=== PATIENT | female | born 1970 | race Caucasian/White ===

== ENCOUNTER 2019-05-24 16:34 | Emergency (ER) | payer OTHER ==
--- NOTE | 2019-05-24 17:59 | RADIOLOGY REPORT (SQ) ---
EXAM DESCRIPTION: CHEST 2 VIEWS COMPLETED DATE/TIME: 05/24/2019 5:44 pm REASON FOR STUDY: chest pain COMPARISON: None. EXAM PARAMETERS: NUMBER OF VIEWS: two views TECHNIQUE: Digital Frontal and Lateral radiographic views of the chest acquired. RADIATION DOSE: NA LIMITATIONS: none FINDINGS: LUNGS AND PLEURA: Calcified granuloma right mid lung field. No acute infiltrates or effus ions. MEDIASTINUM AND HILAR STRUCTURES: No masses or contour abnormalities. HEART AND VASCULAR STRUCTURES: The heart pulmonary vasculature are normal. BONES: No acute findings. HARDWARE: None in the chest. OTHER: No other significant finding. IMPRESSION: No acute disease. Old granulomatous disease. TECHNICAL DOCUMENTATION: JOB ID: [id number] [id number] 2010 [employer]- All Rights Reserved Reading location - IP/workstation name: [email or web address]
[2019-05-24] MEDS ORDERED: ASPIRIN 81 MG TABLET, CHEWABLE PO ONE (18:00)
[2019-05-24 18:16] LABS: ABSOLUTE BASOPHILS # (AUTO) 0.1 10^3/uL (0.0-0.2); ABSOLUTE EOSINOPHILS # (AUTO) 0.1 10^3/uL (0.0-0.6); ABSOLUTE LYMPHOCYTES (AUTO) 2.4 10^3/uL (0.5-4.7); ABSOLUTE MONOCYTES (AUTO) 0.9 10^3/uL (0.1-1.4); ABSOLUTE NEUT (AUTO) 7.2 10^3/uL (1.7-8.2); BASOPHILS % (AUTO) 0.7 % (0-2); EOSINOPHILS % (AUTO) 1.1 % (0-6); HEMATOCRIT 43.3 % (36.0-47.0); LYMPHOCYTES % (AUTO) 22.8 % (13-45); MEAN CORPUSCULAR HEMOGLOBIN 32.8 pg (27.0-33.4); MEAN CORPUSCULAR HGB CONC 34.7 g/dL (32.0-36.0); MEAN CORPUSCULAR VOLUME 94 fl (80-97); MONOCYTES % (AUTO) 8.7 % (3-13); PLATELET COUNT 301 10^3/uL (150-450); RED BLOOD COUNT 4.58 10^6/uL (3.72-5.28); SEGMENTED NEUTROPHILS % (AUTO) 66.7 % (42-78); TOTAL CELLS COUNTED % (AUTO) 100 %; WHITE BLOOD COUNT 10.8 10^3/uL (4.0-10.5)
[2019-05-24 18:33] LABS: ALBUMIN 4.3 g/dL (3.5-5.0); ALKALINE PHOSPHATASE 89 U/L (38-126); ANION GAP 11 (5-19); ASPARTATE AMINO TRANSFERASE 136 U/L (14-36); BILIRUBIN,DIRECT 0.3 mg/dL (0.0-0.4); BILIRUBIN,TOTAL 0.9 mg/dL (0.2-1.3); BLOOD UREA NITROGEN 6 mg/dL (7-20); CALCIUM 8.7 mg/dL (8.4-10.2); CARBON DIOXIDE 23 mmol/L (22-30); CHLORIDE 105 mmol/L (98-107); CREATINE KINASE 80 U/L (30-135); GLUCOSE 89 mg/dL (75-110); POTASSIUM 3.9 mmol/L (3.6-5.0); TOTAL PROTEIN 7.6 g/dL (6.3-8.2)
[2019-05-24 18:45] LABS: CREATINE KINASE MB 0.53 ng/mL (<4.55)
[2019-05-24 18:46] LABS: TROPONIN I < 0.012 ng/mL
[2019-05-24] MEDS ORDERED: ONDANSETRON HCL INJ/PF 4 MG/2 ML SDV IV ONE ×2 (18:56→22:13)
[2019-05-24] MEDS ORDERED: MORPHINE SULFATE 10 MG/ML INJ IV ONE (18:56)
[2019-05-24] MEDS: NITROGLYCERIN 0.4 MG/TAB 25 TAB/BOTTLE SL PRN ×2 (19:15→19:25)
[2019-05-24 19:51] LABS: APPEARANCE,URINE CLEAR; BILIRUBIN,URINE NEGATIVE (NEGATIVE); COLOR,URINE YELLOW; GLUCOSE, URINE NEGATIVE (NEGATIVE); KETONES,URINE 20 mg/dL (NEGATIVE); LEUKOCYTE ESTERASE,URINE NEGATIVE (NEGATIVE); NITRITE,URINE NEGATIVE (NEGATIVE); PROTEIN,URINE NEGATIVE (NEGATIVE); URINE SPECIFIC GRAVITY 1.019; UROBILINOGEN,URINE NEGATIVE mg/dL (<2.0)
[2019-05-24] MEDS ORDERED: HYDROMORPHONE HCL INJ/PF 2 MG/ML AMPULE IV ONE (20:04)
--- NOTE | 2019-05-24 20:43 | ER Document Report ---
ED General - General Chief Complaint: Chest Pain Stated Complaint: CHEST PAIN Time Seen by Provider: 05/24/19 18:32 Primary Care Provider: JEANIE LATIF MD [ACTIVE STAFF] - Follow up in 3-5 days (cardiology ) CAROLYNN BROWER MD [ACTIVE STAFF] - Follow up in 3-5 days (gastroenterology) [facility] [Primary Care Provider] - Follow up in 3-5 days Notes: Patient is a 49-year-old female that presents to the emergency department for chief complaint of chest pain and abdominal pain. Patient states that this pain started a few hours ago, has been coming and going, describes it as a heaviness and pressure across her chest, she currently rates as a 9 out of 10. She states he will come and go without any aggravating, relieving factors. She has not noticed that exertion made it worse or better, did not seem to be better or worse with food. The pain is on the left side of her chest, and her epigastric region of her abdomen. She is concerned that this may be her heart, her brother had heart disease in his 40s. She does admit to smoking cigarettes, drinking 3- 4 times a week, denies prior history of other chronic medical conditions. She said last time she had pain like this, it turned out that she had gallbladder disease and had to have a cholecystectomy. Past Medical History: Denies chronic medical conditions Past Surgical History: Cholecystectomy Social History: Admits to smoking cigarettes daily, and drinking alcohol 3-4 times a week, denies illicit drug use. Family History: Reviewed and noncontributory for presenting illness Allergies: Reviewed, see documented allergy list. REVIEW OF SYSTEMS: Other than noted above, the 12 point review of systems was reviewed with the patient and were negative, all pertinent findings are included in the HPI. PHYSICAL EXAMINATION: Vital signs reviewed, nursing noted reviewed. GENERAL: Patient appears rather anxious on exam. HEAD: Atraumatic, normocephalic. EYES: Eyes appear normal, extraocular movements intact, sclera anicteric, conjunctiva are normal. PERRLA ENT: nares patent, oropharynx clear without exudates. Moist mucous membranes. NECK: Normal range of motion, supple without lymphadenopathy LUNGS: Breath sounds clear to auscultation bilaterally and equal. No wheezes rales or rhonchi. HEART: Regular rate and rhythm without murmurs ABDOMEN: Soft, nontender, normoactive bowel sounds. No rebound, guarding, or rigidity. No masses appreciated. EXTREMITIES: Nontender, good range of motion, no pitting or edema. NEUROLOGICAL: No focal neurological deficits. Moves all extremities spontaneously Motor and sensory grossly intact on exam. PSYCH: Appears anxious on exam, some pressured speech, but answering questions appropriately. SKIN: Warm, Dry, normal turgor, no rashes or lesions noted on exposed skin - Related Data Allergies/Adverse Reactions: No Known Allergies Allergy (Unverified 05/24/19 21:54) Past Medical History - Social History Smoking Status: Current Some Day Smoker Frequency of alcohol use: Occasional Drug Abuse: None Family History: Reviewed & Not Pertinent Patient has suicidal ideation: No Patient has homicidal ideation: No Renal/ Medical History: Denies: Hx Peritoneal Dialysis Musculoskeletal Medical History: Reports Hx Arthritis - RA Past Surgical History: Reports: Hx Orthopedic Surgery - Right rotator cuff Physical Exam - Vital signs Vitals: Temp Pulse BP Pulse Ox 98.2 F 93 131/92 H 96 05/24/19 16:49 05/24/19 16:49 05/24/19 16:49 05/24/19 16:49 Course - Re-evaluation Re-evalutation: Patient seen and examined vital signs reviewed. Laboratory data and/or imaging were ordered as appropriate for the patient's presenting symptoms and complaint, with consideration of any critical or life threatening conditions that may be associated with their obtained history and exam as noted above. Patient was treated with aspirin as ordered in triage, and given IV morphine and Zofran, and was still having some pain reevaluation, and was given some IV Dilaudid, due to the patient's pain above and below the diaphragm, and smoking history, CT angiogram of the chest abdomen and pelvis was ordered to rule out aortic dissection. Her blood work was reviewed, demonstrated negative troponin, and was otherwise unremarkable, EKG did not demonstrate acute ischemia. Repeat troponin was ordered. And came back as negative. From a cardiac standpoint, patient's heart score is less than 3, and I feel she can be discharged at this point, and follow-up for stress testing, given family history, but she otherwise does not have significant risk factors, and again her heart score is less than 3. The patient was re-evaluated and was improved, did give her a GI cocktail, as etiology of this was most likely GI, she is been on PPIs in the past, but has not been on them in a while, she also has ulcerative colitis, has not been taking medication for that. Although her CT imaging was otherwise negative and did not show diffuse colitis. I feel she likely has gastritis versus peptic ulcer disease, without anemia or suspicion of bleeding. We will discharge her home with prescription for proton pump inhibitor, with Protonix, as well as Carafate and advised follow-up with gastroenterology, patient was agreeable to this plan of care and will be discharged home. Results were discussed with the patient at this point, after careful cons ideration I feel that that patient can be discharged from the emergency department, the patient was educated treatments and reasons to return to the emergency department based on their presumed diagnosis as noted above, they were advised to followup with a primary care physician in 2-3 days. Patient was agreeable to plan of care. *Note is created using voice recognition software and may contain spelling, syntax or grammatical errors. Laboratory 05/24/19 05/24/19 05/24/19 18:00 18:00 18:00 WBC 10.8 H RBC 4.58 Hgb 15.0 Hct 43.3 MCV 94 MCH 32.8 MCHC 34.7 RDW 14.0 Plt Count 301 Lymph % (Auto) 22.8 Bladen % (Auto) 8.7 Eos % (Auto) 1.1 Baso % (Auto) 0.7 Absolute Neuts (auto) 7.2 Absolute Lymphs (auto) 2.4 Absolute Monos (auto) 0.9 Absolute Eos (auto) 0.1 Absolute Basos (auto) 0.1 Seg Neutrophils % 66.7 Sodium 138.8 Potassium 3.9 Chloride 105 Carbon Dioxide 23 Anion Gap 11 BUN 6 L Creatinine 0.71 Est GFR ( Amer) > 60 Est GFR (MDRD) Non-Af > 60 Glucose 89 Calcium 8.7 Total Bilirubin 0.9 Direct Bilirubin 0.3 Neonat Total Bilirubin Not Reportable Neonat Direct Bilirubin Not Reportable Neonat Indirect Bili Not Reportable AST 136 H ALT 132 Alkaline Phosphatase 89 Creatine Kinase 80 CK-MB (CK-2) 0.53 Troponin I < 0.012 Total Protein 7.6 Albumin 4.3 Lipase 70.5 Urine Color Urine Appearance Urine pH Ur Specific Edwards Urine Protein Urine Glucose (UA) Urine Ketones Urine Blood Urine Nitrite Urine Bilirubin Urine Urobilinogen Ur Leukocyte Esterase Urine WBC (Auto) Urine RBC (Auto) U Hyaline Cast (Auto) Urine Bacteria (Auto) Squamous Epi Cells Auto Urine Mucus (Auto) Urine Ascorbic Acid 05/24/19 05/24/19 19:07 20:07 WBC RBC Hgb Hct MCV MCH MCHC RDW Plt Count Lymph % (Auto) Bladen % (Auto) Eos % (Auto) Baso % (Auto) Absolute Neuts (auto) Absolute Lymphs (auto) Absolute Monos (auto) Absolute Eos (auto) Absolute Basos (auto) Seg Neutrophils % Sodium Potassium Chloride Carbon Dioxide Anion Gap BUN Creatinine Est GFR ( Amer) Est GFR (MDRD) Non-Af Glucose Calcium Total Bilirubin Direct Bilirubin Neonat Total Bilirubin Neonat Direct Bilirubin Neonat Indirect Bili AST ALT Alkaline Phosphatase Creatine Kinase CK-MB (CK-2) Troponin I < 0.012 Total Protein Albumin Lipase Urine Color YELLOW Urine Appearance CLEAR Urine pH 5.0 Ur Specific Edwards 1.019 Urine Protein NEGATIVE Urine Glucose (UA) NEGATIVE Urine Ketones 20 H Urine Blood SMALL H Urine Nitrite NEGATIVE Urine Bilirubin NEGATIVE Urine Urobilinogen NEGATIVE Ur Leukocyte Esterase NEGATIVE Urine WBC (Auto) 6 Urine RBC (Auto) 0 U Hyaline Cast (Auto) 1 Urine Bacteria (Auto) TRACE Squamous Epi Cells Auto 1 Urine Mucus (Auto) OCC Urine Ascorbic Acid NEGATIVE Chest X-Ray 05/24/19 16:53 IMPRESSION: No acute disease. Old granulomatous disease. Abdomen/Pelvis CTA 05/24/19 18:55 IMPRESSION: No evidence of thoracic or abdominal aortic aneurysm or dissection No evidence of pulmonary embolus Fatty infiltration of the liver No evidence of acute process Chest/Abdomen CTA 05/24/19 18:55 IMPRESSION: No evidence of thoracic or abdominal aortic aneurysm or dissection No evidence of pulmonary embolus Fatty infiltration of the liver No evidence of acute process - Vital Signs Vital signs: Temp Pulse Resp BP Pulse Ox 98.2 F 93 14 129/97 H 92 05/24/19 19:30 05/24/19 16:49 05/24/19 19:30 05/24/19 19:30 05/24/19 19:30 - Laboratory Result Diagrams: 05/24/19 18:00 05/24/19 18:00 Laboratory results interpreted by me: 05/24/19 05/24/19 05/24/19 18:00 18:00 19:07 WBC 10.8 H BUN 6 L AST 136 H Urine Ketones 20 H Urine Blood SMALL H - EKG Interpretation by Me Additional EKG results interpreted by me: EKG demonstrates sinus rhythm with a ventricular rate of 87 bpm, normal axis, normal intervals, no evidence of acute ischemia in this EKG, but no prior for comparison. Discharge - Discharge Clinical Impression: Abdominal pain Qualifiers: Abdominal location: epigastric Qualified Code(s): R10.13 - Epigastric pain Chest pain Qualifiers: Chest pain type: unspecified Qualified Code(s): R07.9 - Chest pain, unspecified Condition: Stable Disposition: HOME, SELF-CARE Instructions: Abdominal Pain ([facility]), Chest Pain of Unclear Cause ([facility]) Additional Instructions: Please follow-up with a lining inserter, I also recommend given your family history to follow-up with a paper grader, they have been listed with your discharge paperwork, call to make an appointment. Recommend you take the prescribed omeprazole, once daily for the next month to see if it will help with some of your symptoms and prevent them from returning. If possible try to quit smoking, and cut back on alcohol intake, as these things can worsen ulcer disease, if that is what is causing your pain. Prescriptions: Sucralfate [Carafate 1 gm Tablet] 1 gm PO ACHS #120 tablet Pantoprazole Sodium [Protonix [address] Tablet] 40 mg PO DAILY #30 tablet. [facility]errals: [facility] [Primary [facility]] - Follow up in 3-5 days JEANIE LATIF MD [ACTIVE STAFF] - Follow up in 3-5 days (cardiology ) CAROLYNN BROWER MD [ACTIVE STAFF] - Follow up in 3-5 days (gastroenterology)
--- NOTE | 2019-05-24 21:18 | RADIOLOGY REPORT (SQ) ---
EXAM DESCRIPTION: CT ABDOMEN PELVIS WITHOUT THEN WITH IV CONTRAST, CT CHEST ANGIOGRAPHY WITHOUT THEN WITH IV CONTRAST COMPLETED DATE/TME: 05/24/2019 18:55 CLINICAL HISTORY: 49 years Female chest pain and abdominal pain COMPARISON: None. TECHNIQUE: Contiguous axial images obtained through the chest abdomen and pelvis during the infusion of IV contrast. Reformatted images obtained. 3-D MIP reformatted images obtained. NASCET criteria utilized for the evaluation of any stenotic lesions. This exam was performed according to our department optimization program which includes automated exposure control, adjustment of the mA and/or kv according to patient size and/or use of iterative reconstruction technique. FINDINGS: Chest: Bilateral breast implants. Aorta is normal in caliber without dissection or rupture. There is no evidence of pericardial or pleural effusion. Calcified lymph nodes in the right hilum. No significant mediastinal or hilar adenopathy. No evidence of pulmonary embolus. No acute infiltrate. No pneumothorax. Abdomen pelvis: Fatty infiltration of the liver. Liver is at the upper limits of normal in size. Unremarkable adrenal glands, pancreas and spleen. Absent gallbladder. Mild extrahepatic ductal dilatation. Unremarkable appendix. Kidneys are within normal limits. No free fluid in the pelvis. No bowel obstruction. The abdominal aorta is normal in caliber without dissection or rupture. The origins of the celiac axis, SMA and renal arteries are unremarkable. Common and external iliac arteries also appear patent. IMPRESSION: No evidence of thoracic or abdominal aortic aneurysm or dissection No evidence of pulmonary embolus Fatty infiltration of the liver No evidence of acute process
[2019-05-24] MEDS ORDERED: MAG HYDROX/AL HYDROX/SIMETH SUSP 30 ML UDCUP PO ONE (21:30)
[2019-05-24] MEDS ORDERED: LIDOCAINE 2% VISCOUS SOLN 20 ML UDCUP PO ONE (21:30)
[2019-05-24] MEDS ORDERED: METOCLOPRAMIDE HCL ORAL SOLN 10 MG/10 ML UDCUP PO ONE (21:30)
[2019-05-24 22:28] VITALS: BP 141/93
--- NOTE | 2019-05-25 00:15 | EKG REPORT ---
SEVERITY:- NORMAL ECG - SINUS RHYTHM : Confirmed by: Victoria Mack MD 25-May-2019 00:14:53
== END 2019-05-24 22:33 | disposition home or self-care (01) ==
LOC: ER 16:34
DX: R07.9 Chest pain, unspecified (principal); R10.13 Epigastric pain; F17.200 Nicotine dependence, unspecified, uncomplicated; Z90.49 Acquired absence of other specified parts of digestive tract
CPT/HCPCS: 93005; 96376; 99285; 96374; 96375; 36415; 82553; 82550; 83690; 85025; 80053; 81001; 84484; 71046; 71275; 74174; 93010; J3490; J2270; J1170; J2405

== ENCOUNTER 2019-09-15 05:17 | Emergency (ER) | payer OTHER ==
[2019-09-15] MEDS ORDERED: KETOROLAC TROMETHAMINE INJ/PF 30 MG/1 ML SDV IV ONE (06:24)
--- NOTE | 2019-09-15 06:49 | ER Document Report ---
ED General - General Chief Complaint: Psych Problem Stated Complaint: ABNORMAL BEHAVIOR,ETOH Time Seen by Provider: 09/15/19 06:16 Primary Care Provider: [facility] [Primary [facility]] - Follow up as needed Information source: Patient TRAVEL OUTSIDE OF THE [place] IN LAST 30 DAYS: No - HPI Notes: Patient presents with depression. She states she is been feeling depressed and having some thoughts of hurting herself. She cannot state any specific plan. Says she does have previous problems with depression and suicide attempts. She states that currently she does not have any active thoughts of suicide. Denies any thoughts when hurting really else. She states she does not have any problems with auditory or visual hallucinations. No vomiting or diarrhea. She states she has had a left-sided headache that is been going on for approximate 1 week. Nothing makes it better or worse. It is constant and throbbing. Is moderate in intensity. It radiates across left side of her head. She denies any previous history of problems with headaches. - Related Data Allergies/Adverse Reactions: No Known Allergies Allergy (Verified 09/15/19 05:42) Home Medications: Pt reports she is not currently taking medications Past Medical History - General Information source: Patient - Social History Smoking Status: Current Some Day Smoker Chew tobacco use (# tins/day): No Frequency of alcohol use: 3days/wk Drug Abuse: None Family History: Reviewed & Not Pertinent Patient has suicidal ideation: Yes - Pt denies, but reports previous plan of running out into traffic Patient has homicidal ideation: No Renal/ Medical History: Denies: Hx Peritoneal Dialysis Musculoskeletal Medical History: Reports Hx Arthritis - RA Past Surgical History: Reports: Hx Orthopedic Surgery - Right rotator cuff Review of Systems - Review of Systems Constitutional: denies: Chills, Fever Cardiovascular: denies: Chest pain, Palpitations Respiratory: denies: Cough, Short of breath Gastrointestinal: denies: Diarrhea, Vomiting -: Yes All other systems reviewed and negative Physical Exam - Vital signs Vitals: Temp Pulse Resp BP Pulse Ox 98.6 F 111 H 18 141/99 H 96 09/15/19 05:40 09/15/19 05:40 09/15/19 05:40 09/15/19 05:40 09/15/19 05:40 Interpretation: Normal - General General appearance: Appears well, Alert - HEENT Head: Normocephalic, Atraumatic Eyes: Normal Pupils: PERRL - Respiratory Respiratory status: No respiratory distress Chest status: Nontender Breath sounds: Normal Chest palpation: Normal - Cardiovascular Rhythm: Regular Heart sounds: Normal auscultation Murmur: No - Abdominal Inspection: Normal Distension: No distension Bowel sounds: Normal Tenderness: Nontender Organomegaly: No organomegaly - Back Back: Normal, Nontender - Extremities General upper extremity: Normal inspection, Nontender, Normal color, Normal ROM, Normal temperature General lower extremity: Normal inspection, Nontender, Normal color, Normal ROM, Normal temperature, Normal weight bearing. No: Judi's sign - Neurological Neuro grossly intact: Yes Cognition: Normal Orientation: AAOx4 [place] Coma Scale Eye Opening: Spontaneous [place] Coma Scale Verbal: Oriented [place] Coma Scale Motor: Obeys Commands [place] Coma Scale Total: 15 Speech: Normal Motor strength normal: LUE, RUE, LLE, RLE Sensory: Normal - Psychological Associated symptoms: Depressed, Flat affect - Skin Skin Temperature: Warm Skin Moisture: Dry Skin Color: Normal Course - Re-evaluation Re-evalutation: 09/15/19 12:50 Patient arrives with complaints of depression and is obviously intoxicated. However she ambulates without problem and speaks very clearly. She has been very difficult to deal with. She has no criteria for IVC. Her laboratory work- up is unremarkable other than an elevated alcohol level. Psychiatry has spent extensive time with the patient and patient is currently not agreeable to alcohol inpatient treatment except at the [facility]. At this time the [facility] does not have any beds for the patient. Therefore patient will be discharged to follow-up as an outpatient. I see no evidence that the patient is a threat to herself or others at this time. Her vital signs are stable. She does have her fianc at the bedside who can accompany the patient. - Vital Signs Vital signs: Temp Pulse Resp BP Pulse Ox 98.6 F 111 H 18 141/99 H 96 09/15/19 05:40 09/15/19 05:40 09/15/19 05:40 09/15/19 05:40 09/15/19 05:40 - Laboratory Result Diagrams: 09/15/19 07:23 09/15/19 07:23 Laboratory results interpreted by me: 09/15/19 09/15/19 07:23 10:19 Sodium 147.8 H Chloride 110 H AST 38 H Ur Leukocyte Esterase TRACE H Salicylates < 1.0 L Acetaminophen < 10 L - EKG Interpretation by Ut EKG shows normal: Sinus rhythm Rate: Normal - 97 Rhythm: NSR [place]/QRS: No: Right axis deviation, Left axis deviation Discharge - Discharge Clinical Impression: Depression Qualifiers: Depression Type: major depressive disorder Major depression recurrence: recurrent Active/Remission status: currently active Major depression episode severity: moderate Qualified Code(s): F33.1 - Major depressive disorder, recurrent, moderate Alcohol intoxication Qualifiers: Complication of substance-induced condition: uncomplicated Qualified Code(s): F10.920 - Alcohol use, unspecified with intoxication, uncomplicated Condition: Stable Disposition: HOME, SELF-CARE Instructions: Acute Alcohol Intoxication ([facility]), Chronic Alcoholism ([facility]), Depression ([facility]) Additional Instructions: Please seek out help with your alcohol as soon as possible. Please consider using the resources given you here in the emergency department. Prescriptions: Chlordiazepoxide HCl [Librium 25 mg Capsule] 1 cap PO QID #30 capsule Referrals: [facility] [Primary [facility]] - Follow up tomorrow
[2019-09-15] MEDS ORDERED: LORAZEPAM 1 MG TABLET PO ONE (07:11)
[2019-09-15] MEDS ORDERED: KETOROLAC TROMETHAMINE INJ/PF 30 MG/1 ML SDV IM ONE (07:23)
--- NOTE | 2019-09-15 08:20 | RADIOLOGY REPORT (SQ) ---
EXAM DESCRIPTION: CT HEAD WITHOUT COMPLETED DATE/TIME: 09/15/2019 7:18 am REASON FOR STUDY: headache COMPARISON: None. TECHNIQUE: Axial images acquired through the brain without intravenous contrast. Images reviewed wi th bone, brain and subdural windows. Images stored on PACS. All CT scanners at this facility use dose modulation, iterative reconstruction, and/or weight based d osing when appropriate to reduce radiation dose to as low as reasonably achievable (ALARA). [facility]: Dose Right [facility]: CareDose [facility]: Dose Right [facility]: Teradose 4D [facility]: [employer] RADIATION DOSE: CT Rad equipment meets quality standard of care and radiation dose reduction techniq ues were employed. CTDIvol: 55.2 mGy. DLP: 1112 mGy-cm. mGy. LIMITATIONS: None. FINDINGS: VENTRICLES: Normal size and contour. CEREBRUM: No masses. No hemorrhage. No midline shift. No evidence for acute infarction. Normal gra y/white matter differentiation. No areas of low density in the white matter. CEREBELLUM: No masses. No hemorrhage. No alteration of density. No evidence for acute infarction. EXTRAAXIAL SPACES: No fluid collections. No masses. ORBITS AND GLOBE: No intra- or extraconal masses. Normal contour of globe without masses. CALVARIUM: No fracture. PARANASAL SINUSES: No fluid or mucosal thickening. SOFT TISSUES: No mass or hematoma. OTHER: No other significant finding. IMPRESSION: No acute intracranial pathology. No noncontrast CT findings to explain headache. EVIDENCE OF ACUTE STROKE: NO. COMMENT: Quality ID # [id number]: Final reports with documentation of one or more dose reduction techniques (e.g., Automated exposure control, adjustment of the mA and/or kV according to patient size, use of iterative reconstruction technique) TECHNICAL DOCUMENTATION: JOB ID: [id number] [employer]- All Rights Reserved Reading location - IP/workstation name: [email or web address]
[2019-09-15 08:46] LABS: ABSOLUTE BASOPHILS # (AUTO) 0.1 10^3/uL (0.0-0.2); ABSOLUTE EOSINOPHILS # (AUTO) 0.2 10^3/uL (0.0-0.6); ABSOLUTE LYMPHOCYTES (AUTO) 2.8 10^3/uL (0.5-4.7); ABSOLUTE MONOCYTES (AUTO) 0.5 10^3/uL (0.1-1.4); ABSOLUTE NEUT (AUTO) 3.2 10^3/uL (1.7-8.2); BASOPHILS % (AUTO) 1.2 % (0-2); EOSINOPHILS % (AUTO) 2.5 % (0-6); HEMATOCRIT 43.8 % (36.0-47.0); LYMPHOCYTES % (AUTO) 41.3 % (13-45); MEAN CORPUSCULAR HEMOGLOBIN 32.4 pg (27.0-33.4); MEAN CORPUSCULAR HGB CONC 34.2 g/dL (32.0-36.0); MEAN CORPUSCULAR VOLUME 95 fl (80-97); MONOCYTES % (AUTO) 7.4 % (3-13); PLATELET COUNT 333 10^3/uL (150-450); RED BLOOD COUNT 4.62 10^6/uL (3.72-5.28); RED CELL DISTRIBUTION WIDTH 13.6 % (11.5-14.0); SEGMENTED NEUTROPHILS % (AUTO) 47.6 % (42-78); TOTAL CELLS COUNTED % (AUTO) 100 %; WHITE BLOOD COUNT 6.7 10^3/uL (4.0-10.5)
[2019-09-15 09:09] LABS: ACETAMINOPHEN < 10 ug/mL (10-30); ALBUMIN 4.5 g/dL (3.5-5.0); ALCOHOL 234 mg/dL (NONE DETECTED); ALKALINE PHOSPHATASE 63 U/L (38-126); ANION GAP 15 (5-19); ASPARTATE AMINO TRANSFERASE 38 U/L (14-36); BILIRUBIN,DIRECT 0.2 mg/dL (0.0-0.4); BILIRUBIN,TOTAL 0.4 mg/dL (0.2-1.3); BLOOD UREA NITROGEN 9 mg/dL (7-20); CALCIUM 9.1 mg/dL (8.4-10.2); CARBON DIOXIDE 23 mmol/L (22-30); CHLORIDE 110 mmol/L (98-107); GLUCOSE 95 mg/dL (75-110); POTASSIUM 4.7 mmol/L (3.6-5.0); SALICYLATE < 1.0 mg/dL (2.0-20.0); TOTAL PROTEIN 8.2 g/dL (6.3-8.2)
[2019-09-15 10:43] LABS: APPEARANCE,URINE SLIGHTLY-CLOUDY; BILIRUBIN,URINE NEGATIVE (NEGATIVE); COLOR,URINE STRAW; GLUCOSE, URINE NEGATIVE (NEGATIVE); KETONES,URINE NEGATIVE (NEGATIVE); LEUKOCYTE ESTERASE,URINE TRACE (NEGATIVE); NITRITE,URINE NEGATIVE (NEGATIVE); PROTEIN,URINE NEGATIVE (NEGATIVE); URINE SPECIFIC GRAVITY 1.004; UROBILINOGEN,URINE NEGATIVE mg/dL (<2.0)
[2019-09-15 11:08] LABS: URINE AMPHETAMINES SCREEN NEGATIVE; URINE BARBITURATES SCREEN NEGATIVE; URINE BENZODIAZEPINES SCREEN NEGATIVE; URINE COCAINE SCREEN NEGATIVE; URINE MARIJUANA (THC) SCREEN NEGATIVE; URINE METHADONE SCREEN NEGATIVE; URINE PHENCYCLIDINE SCREEN NEGATIVE
--- NOTE | 2019-09-15 13:14 | PSYCHOLOGICAL NOTE ---
Psych Note - Psych Note Date seen by psych provider: 09/15/19 Time seen by psych provider: 11:00 Psych Note: Reason for consult: Behavioral Problems Patient is 49 year old female with a history of PTSD and MST. Patient presents to ED via EMS. Patient was yelling at boyfriend about going outside to smoke and leaving patient alone when clinician entered the room. Patient is hyperfocused on her anxiety and the lack of medication she is receiving to alleviate her anxiety. Patient also complains of pain from her hernia. Patient repeatedly complained of the lack of attention from medical staff. Clinician attempted to refocus patient's attention to her reported mental health concerns. Patient stated [facility]. Patient again became irate complaining about her anxiety and lack of attention from medical staff. Patient was guarded with all disclosures when she was not complaining about her perceived lack of attention from medical staff. Patient denies suicidal and homicidal ideations. Patient denies auditory and visual hallucinations. Clinician provided psychoeducation to patient regarding a high blood alcohol content and likelihood of accidental overdose/ when mixed with benzos. Lynn lewis contacted Bab[facility] at the [facility] for collateral information. Babita confirmed PTSD and MST. Patient [facility] Clinician contacted [facility] for possible placement. There are no available beds at the [facility]. Patient declined to go to the [facility] in [place] to begin the process to have the [facility] refer her [facility] for treatment. Patient stated she will only receive services through the [facility]. Updated: Patient asked to speak with clinician at discharge. Patient asked clinician about filling prescription through the [facility]. Clinician provided requested information. Patient expressed confusion about services. Clinician provided patient with outpatient mental health resource list with opinions highlighted that had experience with issues related to the population ([facility] and [facility]). Clinician provided patient with substance abuse treatment resource list. Clinician provided patient with the contact information for the [facility] coordinator and a contact at the [facility] who specializes in PTSD and MST. Clinician encouraged patient to go to the [facility] ED. Patient expressed gratitude for the information. Patient spoke of being overwhelmed with navigating the [facility] system. Clinician encouraged patient to always follow up with the [facility]. Patient is alert and oriented to person, place, time and circumstance. Mood is irate with congruent affect. Patient denies suicidal and homicidal ideations. Delusions are absent and behavior is congruent with an intact reality based presentation (i.e.: organized and linear through processes). There is no observed behavior that suggests patient is responding to internal stimuli. Patient denies current auditory and visual hallucinations. Eye contact is appropriate. Conversational speech is somewhat slurred. At times patient would pause before answering questions. Intellectual ability appears to be within average range. Attention and concentration are good. Insight, judgment and im pulse control are currently poor. DSM Diagnosis: PTSD MST Alcohol Use Disorder Medication recommendations per [facility] contracted psychiatrist Dr. Isa VAZQUEZ is as follows: NONE Impression/Plan: Patient is cleared from acute psychiatric services. Patient does not meet IVC criteria per [facility] GS 122C. Patient denies suicidal and homicidal ideations. There is no observed behavior that suggests patient is responding to internal stimuli. Patient denies current auditory and visual hallucinations. Patient lacks insight into her current circumstance. Clinician observed a pattern of aggressive behavior and speech when patient interacted with hospital staff, however patient could also be calm and cooperative. Initially patient declined any treatment that was not through the [facility]. Patient agreed to consider outpatient services at discharge. Patient was provided outpatient mental health resource list with friendly options highlighted. Patient was provided with substance abuse treatment list. Plan is for patient to present to the [facility] ED. Dr. Larsen was consulted on the care and management of this patient; attending physician is in agreement with recommendations and florentino powers
[2019-09-15 13:24] VITALS: BP 122/80
--- NOTE | 2019-09-15 22:35 | EKG REPORT ---
SEVERITY:- NORMAL ECG - SINUS RHYTHM : Confirmed by: Kali Gifford 15-Sep-2019 22:34:42
== END 2019-09-15 13:35 | disposition home or self-care (01) ==
LOC: ER 05:17
DX: F33.1 Major depressive disorder, recurrent, moderate (principal); F10.920 Alcohol use, unspecified with intoxication, uncomplicated; R51 Headache; F17.200 Nicotine dependence, unspecified, uncomplicated; F43.10 Post-traumatic stress disorder, unspecified
CPT/HCPCS: 93005; 99285; 96372; 36415; 80307 ×4; 85025; 80053; 81001; 70450; 93010; J1885

== ENCOUNTER 2019-09-20 02:32 | Emergency (ER) | payer OTHER ==
[2019-09-20 03:26] LABS: ABSOLUTE BASOPHILS # (AUTO) 0.1 10^3/uL (0.0-0.2); ABSOLUTE EOSINOPHILS # (AUTO) 0.3 10^3/uL (0.0-0.6); ABSOLUTE LYMPHOCYTES (AUTO) 3.1 10^3/uL (0.5-4.7); ABSOLUTE MONOCYTES (AUTO) 0.5 10^3/uL (0.1-1.4); ABSOLUTE NEUT (AUTO) 3.1 10^3/uL (1.7-8.2); EOSINOPHILS % (AUTO) 4.6 % (0-6); HEMATOCRIT 44.9 % (36.0-47.0); HEMOGLOBIN 15.2 g/dL (12.0-15.5); LYMPHOCYTES % (AUTO) 43.6 % (13-45); MEAN CORPUSCULAR HEMOGLOBIN 32.3 pg (27.0-33.4); MEAN CORPUSCULAR HGB CONC 33.9 g/dL (32.0-36.0); MEAN CORPUSCULAR VOLUME 95 fl (80-97); MONOCYTES % (AUTO) 6.5 % (3-13); PLATELET COUNT 369 10^3/uL (150-450); RED CELL DISTRIBUTION WIDTH 13.2 % (11.5-14.0); SEGMENTED NEUTROPHILS % (AUTO) 44.3 % (42-78); TOTAL CELLS COUNTED % (AUTO) 100 %; WHITE BLOOD COUNT 7.1 10^3/uL (4.0-10.5)
[2019-09-20 03:34] LABS: ALBUMIN 4.6 g/dL (3.5-5.0); ALCOHOL 263 mg/dL (NONE DETECTED); ALKALINE PHOSPHATASE 68 U/L (38-126); ANION GAP 15 (5-19); ASPARTATE AMINO TRANSFERASE 55 U/L (14-36); BILIRUBIN,DIRECT 0.2 mg/dL (0.0-0.4); BILIRUBIN,TOTAL 0.3 mg/dL (0.2-1.3); BLOOD UREA NITROGEN 11 mg/dL (7-20); CALCIUM 9.4 mg/dL (8.4-10.2); CARBON DIOXIDE 20 mmol/L (22-30); CHLORIDE 113 mmol/L (98-107); GLUCOSE 99 mg/dL (75-110); POTASSIUM 4.6 mmol/L (3.6-5.0); TOTAL PROTEIN 8.2 g/dL (6.3-8.2)
[2019-09-20] MEDS ORDERED: NORMAL SALINE 1000 ML 1,000 ML IV ONE (03:36)
--- NOTE | 2019-09-20 04:07 | ER Document Report ---
Entered by FELIPE PEACOCK SCRIBE 09/20/19 0332 Acting as scribe for:JOSE DAVIS IV, MD ED Substance Abuse / Acc. OD - General Mode of Arrival: Ambulatory Information source: Patient TRAVEL OUTSIDE OF THE U.S. IN LAST 30 DAYS: No <JOSE DAVIS IV - Last Filed: 09/20/19 05:36> <SHANE JUSTICE - Last Filed: 09/20/19 13:08> - General Chief Complaint: ETOH Abuse Stated Complaint: ETOH Time Seen by Provider: 09/20/19 02:44 Primary Care Provider: [facility] [Primary Care Provider] - Follow up as needed Notes: This 49 year old female patient presents to the emergency department today with complaints of acute alcohol intoxication. Patient reported to nursing staff that "this is the [facility] to the [facility]. This is what I have got to do to stay alive. I am gonna tell them at the [facility] what is going on but I am not going to tell you guys here what I have going on". Denies HI/SI. (JOSE DAVIS IV) - Related Data Allergies/Adverse Reactions: No Known Allergies Allergy (Verified 09/20/19 02:43) Past Medical History - General Information source: Patient - Social History Smoking Status: Current Every Day Smoker Cigarette use (# per day): Yes Frequency of alcohol use: Heavy Drug Abuse: None Family History: Reviewed & Not Pertinent Patient has suicidal ideation: - unk Patient has homicidal ideation: - unk Renal/ Medical History: Denies: Hx Peritoneal Dialysis Musculoskeletal Medical History: Reports Hx Arthritis - RA Past Surgical History: Reports: Hx Abdominal Surgery - hernia repair, Hx Orthopedic Surgery - Right rotator cuff <JOSE DAVIS IV - Last Filed: 09/20/19 05:36> Review of Systems - Review of Systems -: Yes ROS unobtainable due to patient's medical condition - intoxicated <JOSE DAVIS IV - Last Filed: 09/20/19 05:36> Physical Exam <JOSE DAVIS IV - Last Filed: 09/20/19 05:36> - Vital signs Vitals: Temp Pulse Resp BP Pulse Ox 97.3 F 97 13 113/80 97 09/20/19 02:35 09/20/19 02:35 09/20/19 02:35 09/20/19 02:35 09/20/19 02:35 - Notes Notes: Physical Exam: General: Alert, sleeping. Intoxicated. HEENT: Normocephalic. Atraumatic. PERRL. Extraocular movements intact. Oropharynx clear. Neck: Supple. Non-tender. Respiratory: No respiratory distress. Clear and equal breath sounds bilaterally. Cardiovascular: Regular rate and rhythm. Abdominal: Normal Inspection. Non-tender. No distension. Normal Bowel Sounds. Back: No gross abnormalities. Extremities: Moves all four extremities. Upper extremities: Normal inspection. Normal ROM. Lower extremities: Normal inspection. No edema. Normal ROM. Skin: Warm. Dry. Normal color. (JOSE DAVIS IV) Course - Laboratory Result Diagrams: 09/20/19 02:58 09/20/19 02:58 <JOSE DAVIS IV - Last Filed: 09/20/19 05:36> - Laboratory Result Diagrams: 09/20/19 02:58 09/20/19 02:58 <SHANE JUSTICE - Last Filed: 09/20/19 13:08> - Vital Signs Vital signs: Temp Pulse Resp BP Pulse Ox 98.2 F 97 19 121/78 100 09/20/19 11:00 09/20/19 02:35 09/20/19 11:16 09/20/19 11:16 09/20/19 11:16 - Laboratory Laboratory results interpreted by me: 09/20/19 02:58 Sodium 148.1 H Chloride 113 H Carbon Dioxide 20 L AST 55 H - EKG Interpretation by Me Additional EKG results interpreted by me: 09/20/19 03:32 EKG performed on 09/20/2019 at 0307 hrs. was interpreted by this MD. Findings: Normal sinus rhythm, rate 86, normal axis, P waves preceding QRS complexes, QRS complexes appear narrow, there are no apparent ST segment elevation or depress ion patterns to suggest acute myocardial injury or ischemia. Impression: Normal sinus rhythm with nonspecific ST segments. (JOSE DAVIS IV) Discharge <JOSE DAVIS IV - Last Filed: 09/20/19 05:36> <SHANE JUSTICE - Last Filed: 09/20/19 13:08> - Discharge Clinical Impression: Alcohol use disorder Condition: Stable Disposition: HOME, SELF-CARE Referrals: [facility] [Primary Care Provider] - Follow up as needed I personally performed the services described in the documentation, reviewed and edited the documentation which was dictated to the scribe in my presence, and it accurately records my words and actions.
[2019-09-20 04:14] LABS: URINE AMPHETAMINES SCREEN NEGATIVE; URINE BARBITURATES SCREEN NEGATIVE; URINE COCAINE SCREEN NEGATIVE; URINE MARIJUANA (THC) SCREEN NEGATIVE; URINE METHADONE SCREEN NEGATIVE; URINE PHENCYCLIDINE SCREEN NEGATIVE
[2019-09-20 04:20] LABS: URINE BENZODIAZEPINES SCREEN UNCONFIRMED POSITIVE
--- NOTE | 2019-09-20 10:17 | ER Document Report ---
Doctor's Note Notes: 09/20/19 09:56 This is a 49-year-old lady seen overnight by Dr. Rose with alcohol intoxication without documented blood alcohol around 250 at 3 AM. She is too intoxicated to be adequately evaluated at that time. She is now clinically sober and says that she would like to go to alcohol detox with the [facility]. She apparently has some PTSD issues and is chronically depressed and also has some chronic pain issues. She is denying hallucinations or any suicidal/homicidal ideation. I will ask for psychiatry evaluation and put in for consult. 09/20/19 12:52 Patient had been given 0.5 mg of Ativan orally earlier for complaint of anxiety and says that this is "not satisfactory". Patient is complaining of burning and cramping epigastric discomfort which I think is probably due to her abuse of alcohol. She is hemodynamically stable at this time and afebrile. She has mild epigastric tenderness. Certainly has no indication of a surgical abdomen and she indicates that she has long-term abdominal pain similar nature. She says she is received Dilaudid for this elsewhere. I explained to her that I do not feel Dilaudid is at all an appropriate agent. She was offered a GI cocktail and refused this. She then asked for tramadol which I again explained to her was not an appropriate medication of the circumstances. I will give her an IM injection of Benadryl. She is being interviewed by mental health service at this time. 09/20/19 13:04 Mental health service concurs that patient is not suicidal or homicidal. She wants to go to the [facility] in [place] for admission there for detox. She and her boyfriend have already spoken with someone at their crisis line and they indicate that she can come to the emergency department at that facility for evaluation. She is being discharged and will be transported by her boyfriend at this time.
[2019-09-20] MEDS ORDERED: LORAZEPAM 0.5 MG TABLET PO ONE (11:25)
[2019-09-20] MEDS ORDERED: METOCLOPRAMIDE HCL ORAL SOLN 10 MG/10 ML UDCUP PO ONE (12:30)
[2019-09-20] MEDS ORDERED: LIDOCAINE 2% VISCOUS SOLN 20 ML UDCUP PO ONE (12:30)
[2019-09-20] MEDS ORDERED: MAG HYDROX/AL HYDROX/SIMETH SUSP 30 ML UDCUP PO ONE (12:30)
[2019-09-20] MEDS ORDERED: HYDROXYZINE PAMOATE 25 MG CAPSULE PO ONE (12:30)
[2019-09-20] MEDS ORDERED: DICYCLOMINE HCL INJ 20 MG/2 ML AMPULE IM ONE (12:54)
--- NOTE | 2019-09-20 13:11 | PSYCHOLOGICAL NOTE ---
Psych Note - Psych Note Date seen by psych provider: 09/20/19 Time seen by psych provider: 12:30 Psych Note: Reason for consult: ETOH Patient is 49 year old female with a history of PTSD and MST. Patient presents to ED via EMS. Patient was seen by behavioral health on 09/15/2019 with same concerns. Patient "self medicates" with ETOH. Patient's JESUS is 263. Patient was requesting medication for pain associated with Lupus and an abdominal hernia. Patient s tates she went home on 09/15/2019 and changed her mind about going to [place]. Clinician provided psychoeducation to patient regarding a high blood alcohol content and likelihood of accidental overdose/ when mixed with benzos and pain medication. Clinician contacted Babita at the [facility] for collateral information. Babita confirmed PTSD and MST. Patient has recieved inpatient services through the [facility]. Clinician contacted [facility], [place], and [facility] and was informed there are no available beds. Patient stated she will only receive services through the [facility]. Patient is alert and oriented to person, place, time and circumstance. Mood is normal with congruent affect. Patient denies suicidal and homicidal ideations. Delusions are absent and behavior is congruent with an intact reality based presentation (i.e.: organized and linear through processes). There is no observed behavior that suggests patient is responding to internal stimuli. Patient denies current auditory and visual hallucinations. Eye contact is appropriate. Conversational speech is somewhat slurred. At times patient would pause before answering questions. Intellectual ability appears to be within ave rage range. Attention and concentration are good. Insight, judgment and impulse control are currently poor. DSM Diagnosis: PTSD MST Alcohol Use Disorder; Severe Medication recommendations per [facility] contracted psychiatrist Dr. Isa VAZQUEZ is as follows: NONE Impression/Plan: Patient is cleared from acute psychiatric services. Patient does not meet IVC criteria per [place] GS 122C. Patient denies suicidal and homicidal ideations. There is no observed behavior that suggests patient is responding to internal stimuli. Patient denies current auditory and visual hallucinations. Patient verbalized insight that she needs help. Plan is for patient to leave ED and immediately present to the [facility] ED for further treatment. [facility] ED was advised patient is en route. Dr. Larsen was consulted on the care and management of this patient; attending physician is in agreement with recommendations and disposition.
[2019-09-20 14:09] VITALS: BP 119/88
--- NOTE | 2019-09-20 17:15 | EKG REPORT ---
SEVERITY:- BORDERLINE ECG - SINUS RHYTHM BORDERLINE PROLONGED QT INTERVAL : Confirmed by: Kali Gifford 20-Sep-2019 17:14:08
== END 2019-09-20 14:08 | disposition home or self-care (01) ==
LOC: ER 02:32
DX: F10.129 Alcohol abuse with intoxication, unspecified (principal); Y90.8 Blood alcohol level of 240 mg/100 ml or more; F17.210 Nicotine dependence, cigarettes, uncomplicated; F41.9 Anxiety disorder, unspecified; R10.13 Epigastric pain
CPT/HCPCS: 93005; 99285; 96372; 96360; 36415; 80307 ×2; 85025; 80053; 93010; J0500; J7030

== ENCOUNTER 2019-09-25 04:44 | Emergency (ER) | payer OTHER ==
[2019-09-25 06:34] LABS: ABSOLUTE EOSINOPHILS # (AUTO) 0.3 10^3/uL (0.0-0.6); ABSOLUTE LYMPHOCYTES (AUTO) 2.8 10^3/uL (0.5-4.7); ABSOLUTE MONOCYTES (AUTO) 0.6 10^3/uL (0.1-1.4); ABSOLUTE NEUT (AUTO) 4.7 10^3/uL (1.7-8.2); BASOPHILS % (AUTO) 0.2 % (0-2); EOSINOPHILS % (AUTO) 3.4 % (0-6); HEMATOCRIT 44.2 % (36.0-47.0); HEMOGLOBIN 15.2 g/dL (12.0-15.5); LYMPHOCYTES % (AUTO) 33.1 % (13-45); MEAN CORPUSCULAR HEMOGLOBIN 32.6 pg (27.0-33.4); MEAN CORPUSCULAR HGB CONC 34.3 g/dL (32.0-36.0); MEAN CORPUSCULAR VOLUME 95 fl (80-97); MONOCYTES % (AUTO) 7.3 % (3-13); PLATELET COUNT 335 10^3/uL (150-450); RED BLOOD COUNT 4.65 10^6/uL (3.72-5.28); RED CELL DISTRIBUTION WIDTH 13.5 % (11.5-14.0); TOTAL CELLS COUNTED % (AUTO) 100 %; WHITE BLOOD COUNT 8.4 10^3/uL (4.0-10.5)
[2019-09-25 06:46] LABS: APPEARANCE,URINE SLIGHTLY-CLOUDY; BILIRUBIN,URINE NEGATIVE (NEGATIVE); COLOR,URINE YELLOW; GLUCOSE, URINE NEGATIVE (NEGATIVE); KETONES,URINE NEGATIVE (NEGATIVE); LEUKOCYTE ESTERASE,URINE NEGATIVE (NEGATIVE); NITRITE,URINE NEGATIVE (NEGATIVE); PROTEIN,URINE NEGATIVE (NEGATIVE); URINE SPECIFIC GRAVITY 1.012; UROBILINOGEN,URINE NEGATIVE mg/dL (<2.0)
[2019-09-25 06:59] LABS: ALBUMIN 4.7 g/dL (3.5-5.0); ALKALINE PHOSPHATASE 72 U/L (38-126); ANION GAP 18 (5-19); ASPARTATE AMINO TRANSFERASE 61 U/L (14-36); BILIRUBIN,DIRECT 0.5 mg/dL (0.0-0.4); BILIRUBIN,TOTAL 0.5 mg/dL (0.2-1.3); BLOOD UREA NITROGEN 11 mg/dL (7-20); CALCIUM 9.9 mg/dL (8.4-10.2); CARBON DIOXIDE 23 mmol/L (22-30); CHLORIDE 103 mmol/L (98-107); GLUCOSE 86 mg/dL (75-110); POTASSIUM 4.3 mmol/L (3.6-5.0); TOTAL PROTEIN 8.6 g/dL (6.3-8.2)
[2019-09-25] MEDS ORDERED: NORMAL SALINE 1000 ML 1,000 ML IV ONE (11:17)
[2019-09-25] MEDS ORDERED: DICYCLOMINE HCL INJ 20 MG/2 ML AMPULE IM ONE (11:23)
[2019-09-25] MEDS ORDERED: ONDANSETRON HCL INJ/PF 4 MG/2 ML SDV IV ONE (11:23)
--- NOTE | 2019-09-25 11:54 | ER Document Report ---
ED General - General Chief Complaint: Abdominal Pain Stated Complaint: ABDOMINAL PAIN Time Seen by Provider: 09/25/19 11:11 Primary Care Provider: JOSE SENIOR MD [ACTIVE STAFF] - Follow up in 1 week [facility] [Primary Care Provider] - Follow up in 3-5 days Notes: 49-year-old female presents with abdominal pain secondary to an abdominal hernia that is been ongoing for 4 years. Patient states she has daily lucia sea/vomiting/diarrhea. Patient denies any fevers/chills. Patient does admit to alcohol use. Patient denies any chest pain or shortness of breath. TRAVEL OUTSIDE OF THE U.S. IN LAST 30 DAYS: No - Related Data Allergies/Adverse Reactions: No Known Allergies Allergy (Verified 09/20/19 02:43) Home Medications: etodolac. gabapentin Past Medical History - Social History Smoking Status: Current Some Day Smoker Frequency of alcohol use: 3 glasses of wine Family History: Reviewed & Not Pertinent Patient has suicidal ideation: No Patient has homicidal ideation: No Renal/ Medical History: Denies: Hx Peritoneal Dialysis Musculoskeletal Medical History: Reports Hx Arthritis - RA Past Surgical History: Reports: Hx Abdominal Surgery - hernia repair, Hx Orthopedic Surgery - Right rotator cuff - Immunizations Immunizations up to date: Yes Hx Diphtheria, Pertussis, Tetanus Vaccination: Yes Review of Systems - Review of Systems Notes: Constitutional: Negative for fever. HENT: Negative for sore throat. Eyes: Negative for visual changes. Cardiovascular: Negative for chest pain. Respiratory: Negative for shortness of breath. Gastrointestinal: Positive for abdominal pain, vomiting or diarrhea. Genitourinary: Negative for dysuria. Musculoskeletal: Negative for back pain. Skin: Negative for rash. Neurological: Negative for headaches, weakness or numbness. 10 point ROS negative except as marked above and in HPI. Physical Exam - Vital signs Vitals: Temp Pulse Resp BP Pulse Ox 98.3 F 117 H 20 137/92 H 97 09/25/19 04:52 09/25/19 04:52 09/25/19 04:52 09/25/19 04:52 09/25/19 04:52 - Notes Notes: GENERAL: Well-appearing, well-nourished and in no acute distress. HEAD: Atraumatic, normocephalic. EYES: Extraocular movements intact, sclera anicteric, conjunctiva are normal. NECK: Normal range of motion, supple without lymphadenopathy or JVD. LUNGS: Breath sounds clear to auscultation bilaterally and equal. No wheezes rales or rhonchi. HEART: Regular rate and rhythm without murmurs, rubs or gallops. ABDOMEN: Soft, diffusely tender. Abdominal hernia noted which is soft and reducible. No guarding, no rebound. No masses appreciated. EXTREMITIES: Normal range of motion, no pitting or edema. No clubbing or cyanosis. NEUROLOGICAL: Cranial nerves II through XII grossly intact. Normal speech, normal gait. PSYCH: Normal mood, normal affect. SKIN: Warm, Dry, normal turgor, no rashes or lesions noted. Course - Re-evaluation Re-evalutation: 09/25/19 49-year-old female presents for 4-year history of abdominal pain second vinay to an abdominal hernia with daily nausea/vomiting/diarrhea. Nontoxic, well- appearing. Afebrile. Abdomen is soft and diffusely tender with no rebound or guarding. Hernia is reducible and soft. PE is otherwise unremarkable. Lab work is unremarkable. No leukocytosis. Mildly elevated AST. CT abdomen/pelvis with IV contrast ordered. Bentyl IM and Zofran IV with IV fluid bolus also ordered. 09/25/19 13:07 CT scan shows epiploic appendagitis. Will treat pt with Bentyl and refer pt to general surgery. Discussed plan of care with pt who agrees. Also discussed pt with Dr. Bailey, attending, who agrees with plan of care. - Vital Signs Vital signs: Temp Pulse Resp BP Pulse Ox 98.0 F 91 17 109/64 100 09/25/19 13:28 09/25/19 13:28 09/25/19 13:28 09/25/19 13:28 09/25/19 13:28 - Laboratory Result Diagrams: 09/25/19 05:57 09/25/19 05:57 Laboratory results interpreted by me: 09/25/19 05:57 Direct Bilirubin 0.5 H AST 61 H Total Protein 8.6 H Discharge - Discharge Clinical Impression: Epiploic appendagitis Abdominal pain Qualifiers: Abdominal location: generalized Qualified Code(s): R10.84 - Generalized abdominal pain Condition: Stable Disposition: HOME, SELF-CARE Instructions: Abdominal Pain ([facility]) Additional Instructions: Your CT scan shows epiploic appendagitis which is usually self-limiting. Please take medications as prescribed. Please stop drinking. Please follow-up with the surgeon listed in 1 to 2 weeks. Please follow-up with your primary care doctor in 3 to 5 days. Return immediately to ER if you start having any worsening symptoms, including fever, worsening abdominal pain, nausea/vomiting, diarrhea, constipation, chest pain, shortness of breath, or any other symptoms that are concerning to you. Prescriptions: Ibuprofen [Motrin 600 mg Tablet] 600 mg PO Q8HP PRN #20 tablet PRN Reason: Dicyclomine HCl [Bentyl 20 mg Tablet] 20 mg PO QID #40 tablet Referrals: [facility] [Primary Care Provider] - Follow up in 3-5 days JOSE SENIOR MD [ACTIVE STAFF] - Follow up in 1 week
--- NOTE | 2019-09-25 12:33 | RADIOLOGY REPORT (SQ) ---
EXAM DESCRIPTION: CT ABD/PELVIS WITH IV ONLY COMPLETED DATE/TIME: 09/25/2019 12:05 pm REASON FOR STUDY: abd pain, n/v/d, hx abd hernia COMPARISON: CT of the abdomen and pelvis from 05/24/2019. TECHNIQUE: CT scan of the abdomen and pelvis performed using helical scanning technique with dynamic intravenous contrast injection. No oral contrast. Images reviewed with lung, soft tissue, and bone windows. Reconstructed coronal and sagittal MPR images reviewed. Delayed images for evaluation of the urinary system also acquired. All images stored on PACS. All CT scanners at this facility use dose modulation, iterative reconstruction, and/or weight based d osing when appropriate to reduce radiation dose to as low as reasonably achievable (ALARA). [facility]: Dose Right [facility]: CareDose [facility]: Dose Right [facility]: Teradose 4D [facility]: Decision Lens CONTRAST TYPE AND DOSE: Contrast/concentration: Isovue 350.00 mg/ml; Total Contrast Delivered: 87.0 ml; Total Saline Delivered: 55.3 ml RENAL FUNCTION: Creatinine 0.81 milligrams/deciliter RADIATION DOSE: CT Rad equipment meets quality standard of care and radiation dose reduction techniq ues were employed. CTDIvol: 8.0 - 11.4 mGy. DLP: 1033 mGy-cm.. LIMITATIONS: None. FINDINGS: LOWER CHEST: Bibasilar atelectasis. No cardiomegaly or pericardial effusion. LIVER: Hepatic steatosis. The morphology of the liver is non cirrhotic. The portal and hepatic vein s are patent. There is no hepatic mass. SPLEEN: No splenomegaly or splenic mass. PANCREAS: No abnormality of the pancreas. GALLBLADDER: The gallbladder is surgically absent. The intra- and extrahepatic bile ducts are normal in caliber. ADRENAL GLANDS: No mass or asymmetry. RIGHT KIDNEY AND URETER: No solid masses. No calcifications. No hydronephrosis or hydroureter. LEFT KIDNEY AND URETER: No solid masses. No calcifications. No hydronephrosis or hydroureter. AORTA AND VESSELS: No aneurysm or dissection of the abdominal aorta. Variant circumaortic left renal vein. RETROPERITONEUM: No retroperitoneal adenopathy, hemorrhage or mass. BOWEL AND PERITONEAL CAVITY: There is an ovoid fat attenuation structure with a thin echogenic rim in the left lower quadrant (image 64 of series 3) that could represent an acute epiploic appendagitis. There is no bowel obstruction, bowel wall thickening, or pericolonic/perienteric inflammation. Ther e is no mesenteric adenopathy or free intraperitoneal fluid. APPENDIX: Normal. PELVIS: The urinary bladder is normal in appearance. There is a hypodense lesion in the left adnexa that measures 1.7 x 1.3 cm that could represent an ovarian cyst. There is no abnormality of the uter us or right adnexa that is apparent on CT. ABDOMINAL WALL: No masses or hernias. BONES: No acute findings. OTHER: No other finding. IMPRESSION: 1. Ovoid fat attenuation structure with a thin echogenic rim in the left lower quadrant (image 64 of series 3) that could represent an acute epiploic appendagitis. 2. Hepatic steatosis. TECHNICAL DOCUMENTATION: JOB ID: [id number] Quality ID # [id number]: Final reports with documentation of one or more dose reduction techniques (e.g., Au tomated exposure control, adjustment of the mA and/or kV according to patient size, use of iterative reconstruction technique) 2010 [employer]- All Rights Reserved Reading location - IP/workstation name: CAROL
[2019-09-25 13:29] VITALS: BP 109/64
== END 2019-09-25 13:40 | disposition home or self-care (01) ==
LOC: ER 04:44
DX: K46.9 Unspecified abdominal hernia without obstruction or gangrene (principal); K63.89 Other specified diseases of intestine; R10.84 Generalized abdominal pain; R10.817 Generalized abdominal tenderness; R74.0 Nonspecific elevation of levels of transaminase and lactic acid dehydrogenase [LDH]; R11.2 Nausea with vomiting, unspecified; R19.7 Diarrhea, unspecified; F17.200 Nicotine dependence, unspecified, uncomplicated; M06.9 Rheumatoid arthritis, unspecified; Z79.899 Other long term (current) drug therapy; Z79.1 Long term (current) use of non-steroidal anti-inflammatories (NSAID)
CPT/HCPCS: 99284; 96372; 96361; 96374; 36415; 83690; 85025; 80053; 81001; 74177; J0500; J2405; J7030

== ENCOUNTER 2019-10-11 06:55 | Emergency (ER) | payer OTHER ==
[2019-10-11 07:50] LABS: ABSOLUTE EOSINOPHILS # (AUTO) 0.3 10^3/uL (0.0-0.6); ABSOLUTE LYMPHOCYTES (AUTO) 2.8 10^3/uL (0.5-4.7); ABSOLUTE MONOCYTES (AUTO) 0.7 10^3/uL (0.1-1.4); ABSOLUTE NEUT (AUTO) 4.1 10^3/uL (1.7-8.2); BASOPHILS % (AUTO) 0.2 % (0-2); EOSINOPHILS % (AUTO) 3.3 % (0-6); HEMATOCRIT 41.3 % (36.0-47.0); HEMOGLOBIN 14.3 g/dL (12.0-15.5); LYMPHOCYTES % (AUTO) 35.8 % (13-45); MEAN CORPUSCULAR HEMOGLOBIN 32.7 pg (27.0-33.4); MEAN CORPUSCULAR HGB CONC 34.7 g/dL (32.0-36.0); MEAN CORPUSCULAR VOLUME 94 fl (80-97); MONOCYTES % (AUTO) 8.7 % (3-13); PLATELET COUNT 328 10^3/uL (150-450); RED BLOOD COUNT 4.38 10^6/uL (3.72-5.28); RED CELL DISTRIBUTION WIDTH 13.8 % (11.5-14.0); TOTAL CELLS COUNTED % (AUTO) 100 %; WHITE BLOOD COUNT 7.8 10^3/uL (4.0-10.5)
[2019-10-11 07:53] LABS: APPEARANCE,URINE CLEAR; BILIRUBIN,URINE MODERATE (NEGATIVE); COLOR,URINE YELLOW; GLUCOSE, URINE NEGATIVE (NEGATIVE); KETONES,URINE NEGATIVE (NEGATIVE); LEUKOCYTE ESTERASE,URINE TRACE (NEGATIVE); NITRITE,URINE NEGATIVE (NEGATIVE); PROTEIN,URINE NEGATIVE (NEGATIVE); URINE SPECIFIC GRAVITY 1.011
[2019-10-11 08:05] LABS: ALBUMIN 4.7 g/dL (3.5-5.0); ALCOHOL 204 mg/dL (NONE DETECTED); ALKALINE PHOSPHATASE 79 U/L (38-126); ANION GAP 17 (5-19); ASPARTATE AMINO TRANSFERASE 53 U/L (14-36); BILIRUBIN,DIRECT 0.8 mg/dL (0.0-0.4); BILIRUBIN,TOTAL 0.8 mg/dL (0.2-1.3); BLOOD UREA NITROGEN 7 mg/dL (7-20); CALCIUM 9.5 mg/dL (8.4-10.2); CARBON DIOXIDE 21 mmol/L (22-30); CHLORIDE 108 mmol/L (98-107); GLUCOSE 98 mg/dL (75-110); POTASSIUM 4.1 mmol/L (3.6-5.0); TOTAL PROTEIN 8.7 g/dL (6.3-8.2)
[2019-10-11 08:06] LABS: ACETAMINOPHEN < 10 ug/mL (10-30); SALICYLATE < 1.0 mg/dL (2.0-20.0)
[2019-10-11 08:14] LABS: URINE AMPHETAMINES SCREEN NEGATIVE; URINE BARBITURATES SCREEN NEGATIVE; URINE COCAINE SCREEN NEGATIVE; URINE MARIJUANA (THC) SCREEN NEGATIVE; URINE METHADONE SCREEN NEGATIVE; URINE PHENCYCLIDINE SCREEN NEGATIVE
[2019-10-11 08:15] LABS: URINE BENZODIAZEPINES SCREEN UNCONFIRMED POSITIVE
[2019-10-11] MEDS ORDERED: NORMAL SALINE 1000 ML 1,000 ML IV ONE (08:51)
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
--- NOTE | 2019-10-11 10:05 | RADIOLOGY REPORT (SQ) ---
EXAM DESCRIPTION: CT HEAD WITHOUT COMPLETED DATE/TIME: 10/11/2019 9:52 am REASON FOR STUDY: alcoholic, fall COMPARISON: None. TECHNIQUE: Axial images acquired through the brain without intravenous contrast. Images reviewed wi th bone, brain and subdural windows. Images stored on PACS. All CT scanners at this facility use dose modulation, iterative reconstruction, and/or weight based d osing when appropriate to reduce radiation dose to as low as reasonably achievable (ALARA). [facility]: Dose Right [facility]: CareDose [facility]: Dose Right [facility]: Teradose 4D [facility]: EXENDIS RADIATION DOSE: CT Rad equipment meets quality standard of care and radiation dose reduction techniq ues were employed. CTDIvol: 53.2 mGy. DLP: 911 mGy-cm. mGy. LIMITATIONS: None. FINDINGS: VENTRICLES: Normal size and contour. CEREBRUM: No masses. No hemorrhage. No midline shift. No evidence for acute infarction. Normal gra y/white matter differentiation. No areas of low density in the white matter. CEREBELLUM: No masses. No hemorrhage. No alteration of density. No evidence for acute infarction. EXTRAAXIAL SPACES: No fluid collections. No masses. ORBITS AND GLOBE: No intra- or extraconal masses. Normal contour of globe without masses. CALVARIUM: No fracture. PARANASAL SINUSES: No fluid or mucosal thickening. SOFT TISSUES: No mass or hematoma. OTHER: No other significant finding. IMPRESSION: NORMAL BRAIN CT WITHOUT CONTRAST. EVIDENCE OF ACUTE STROKE: NO. COMMENT: Quality ID # [id number]: Final reports with documentation of one or more dose reduction techniques (e.g., Automated exposure control, adjustment of the mA and/or kV according to patient size, use of iterative reconstruction technique) TECHNICAL DOCUMENTATION: JOB ID: [id number] [employer]- All Rights Reserved Reading location - IP/workstation name: [email or web address]
--- NOTE | 2019-10-11 10:10 | RADIOLOGY REPORT (SQ) ---
EXAM DESCRIPTION: CT ABD/PELVIS WITH IV ONLY COMPLETED DATE/TIME: 10/11/2019 9:53 am REASON FOR STUDY: abdominal pain, bruising tender COMPARISON: 09/25/2019. TECHNIQUE: CT scan of the abdomen and pelvis performed using helical scanning technique with dynamic intravenous contrast injection. No oral contrast. Images reviewed with lung, soft tissue, and bone windows. Reconstructed coronal and sagittal MPR images reviewed. Delayed images for evaluation of the urinary system also acquired. All images stored on PACS. All CT scanners at this facility use dose modulation, iterative reconstruction, and/or weight based d osing when appropriate to reduce radiation dose to as low as reasonably achievable (ALARA). [facility]: Dose Right [facility]: CareDose [facility]: Dose Right [facility]: Teradose 4D [facility]: [employer] CONTRAST TYPE AND DOSE: contrast/concentration: Isovue 350.00 mg/ml; Total Contrast Delivered: 91.0 ml; Total Saline Delivered: 41.0 ml RENAL FUNCTION: None required. The patient is less than 50 years old. RADIATION DOSE: CT Rad equipment meets quality standard of care and radiation dose reduction techniq ues were employed. CTDIvol: 9.6 - 14.4 mGy. DLP: 1340 mGy-cm.. LIMITATIONS: None. FINDINGS: LOWER CHEST: Small hiatal hernia. Clear lung bases. LIVER: Diffusely fatty without evidence of laceration or mass or perihepatic fluid. SPLEEN: No evidence of injury. PANCREAS: No masses. No significant calcifications. No adjacent inflammation or peripancreatic fluid collections. Pancreatic duct not dilated. GALLBLADDER: Surgically absent. ADRENAL GLANDS: No significant masses or asymmetry. RIGHT KIDNEY AND URETER: No solid masses. No significant calcification. No hydronephrosis or hydroure ter. LEFT KIDNEY AND URETER: No solid masses. No significant calcification. No hydronephrosis or hydrouret er. AORTA AND VESSELS: No aneurysm. No dissection. Renal arteries, SMA, celiac without stenosis. RETROPERITONEUM: No retroperitoneal adenopathy, hemorrhage or masses. BOWEL AND PERITONEAL CAVITY: No evidence of bowel obstruction. No ascites or abnormal gas or perfora tion. Minimal proximal small bowel distention, likely minimal ileus. APPENDIX: Normal. PELVIS: No mass. No free fluid. Normal bladder. ABDOMINAL WALL: No bowel containing hernia or mass. BONES: No significant or acute findings. OTHER: No other significant finding. IMPRESSION: 1. No acute abdominopelvic injury. Mild ileus. 2. Fatty liver. TECHNICAL DOCUMENTATION: JOB ID: [id number] Quality ID # [id number]: Final reports with documentation of one or more dose reduction techniques (e.g., Au tomated exposure control, adjustment of the mA and/or kV according to patient size, use of iterative reconstruction technique) 2010 [employer]- All Rights Reserved Reading location - IP/workstation name: [email or web address]
[2019-10-11] MEDS ORDERED: LORAZEPAM 1 MG TABLET PO ONE (10:41)
[2019-10-11 12:51] VITALS: BP 130/88
--- NOTE | 2019-10-11 20:44 | EKG REPORT ---
SEVERITY:- BORDERLINE ECG - SINUS RHYTHM BORDERLINE T ABNORMALITIES, ANT-LAT LEADS : Confirmed by: Kali Gifford 11-Oct-2019 20:43:53
== END 2019-10-11 12:55 | disposition home or self-care (01) ==
LOC: ER 06:55
DX: F10.129 Alcohol abuse with intoxication, unspecified (principal); S30.1XXA Contusion of abdominal wall, initial encounter; R14.0 Abdominal distension (gaseous); F17.200 Nicotine dependence, unspecified, uncomplicated; W01.190A Fall on same level from slipping, tripping and stumbling with subsequent striking against furniture, initial encounter
CPT/HCPCS: 93005; 99284; 96360; 96361; 36415; 80307 ×4; 83690; 85025; 80053; 81001; 70450; 74177; 93010; J7030

== ENCOUNTER 2019-11-17 07:05 | Emergency (ER) | payer OTHER | END 2019-11-17 07:54 | disposition left against medical advice (07) | LOC: ER 07:05 | DX: Z53.21 Procedure and treatment not carried out due to patient leaving prior to being seen by health care provider (principal) ==

== ENCOUNTER 2020-09-26 03:08 | Emergency (ER) | payer OTHER ==
[2020-09-26 03:39] LABS: ABSOLUTE BASOPHILS # (AUTO) 0.1 10^3/uL (0.0-0.2); ABSOLUTE EOSINOPHILS # (AUTO) 0.2 10^3/uL (0.0-0.6); ABSOLUTE LYMPHOCYTES (AUTO) 3.2 10^3/uL (0.5-4.7); ABSOLUTE MONOCYTES (AUTO) 1.3 10^3/uL (0.1-1.4); ABSOLUTE NEUT (AUTO) 8.7 10^3/uL (1.7-8.2); BASOPHILS % (AUTO) 0.9 % (0-2); EOSINOPHILS % (AUTO) 1.3 % (0-6); HEMATOCRIT 44.4 % (36.0-47.0); HEMOGLOBIN 15.5 g/dL (12.0-15.5); LYMPHOCYTES % (AUTO) 24.1 % (13-45); MEAN CORPUSCULAR HEMOGLOBIN 30.2 pg (27.0-33.4); MEAN CORPUSCULAR HGB CONC 34.9 g/dL (32.0-36.0); MEAN CORPUSCULAR VOLUME 87 fl (80-97); MONOCYTES % (AUTO) 9.3 % (3-13); PLATELET COUNT 337 10^3/uL (150-450); RED BLOOD COUNT 5.13 10^6/uL (3.72-5.28); RED CELL DISTRIBUTION WIDTH 15.5 % (11.5-14.0); SEGMENTED NEUTROPHILS % (AUTO) 64.4 % (42-78); TOTAL CELLS COUNTED % (AUTO) 100 %; WHITE BLOOD COUNT 13.5 10^3/uL (4.0-10.5)
[2020-09-26 04:01] LABS: ALBUMIN 4.2 g/dL (3.5-5.0); ALKALINE PHOSPHATASE 95 U/L (38-126); ANION GAP 12 (5-19); ASPARTATE AMINO TRANSFERASE 31 U/L (14-36); BILIRUBIN,DIRECT 0.3 mg/dL (0.0-0.4); BILIRUBIN,TOTAL 0.5 mg/dL (0.2-1.3); BLOOD UREA NITROGEN 7 mg/dL (7-20); CALCIUM 8.9 mg/dL (8.4-10.2); CARBON DIOXIDE 20 mmol/L (22-30); CHLORIDE 108 mmol/L (98-107); CREATINE KINASE 22 U/L (30-135); GLUCOSE 124 mg/dL (75-110); POTASSIUM 4.1 mmol/L (3.6-5.0); TOTAL PROTEIN 7.8 g/dL (6.3-8.2)
[2020-09-26] MEDS ORDERED: NORMAL SALINE 1000 ML 1,000 ML IV ONE ×2 (04:14→07:05)
[2020-09-26 04:20] LABS: CREATINE KINASE MB < 0.22 ng/mL (<4.55); TROPONIN I < 0.012 ng/mL
--- NOTE | 2020-09-26 04:43 | RADIOLOGY REPORT (SQ) ---
EXAM DESCRIPTION: XR CHEST 1 VIEW COMPLETED DATE/TME: 09/26/2020 03:54 CLINICAL HISTORY: 50 years, Female, CP COMPARISON: 05/24/2019 chest NUMBER OF VIEWS: 1 TECHNIQUE: Portable chest LIMITATIONS: None. FINDINGS: The heart size is normal. Calcified granuloma in the lateral right lung base. Lungs otherwise clear. No pneumothorax IMPRESSION: No acute cardiopulmonary process copyright 2010 [employer]- All Rights Reserved
[2020-09-26 05:57] LABS: FREE T3 3.31 pg/mL (2.77-5.27); FREE T4 (FREE THYROXINE) 1.15 ng/dL (0.78-2.19)
[2020-09-26 06:11] LABS: THYROID STIMULATING HORMONE 5.82 uIU/mL (0.47-4.68)
--- NOTE | 2020-09-26 06:35 | EKG REPORT ---
SEVERITY:- BORDERLINE ECG - SINUS TACHYCARDIA CONSIDER ANTERIOR INFARCT : Confirmed by: Harshad Euceda MD 26-Sep-2020 06:34:57
[2020-09-26] MEDS ORDERED: KETOROLAC TROMETHAMINE INJ/PF 30 MG/1 ML SDV IV ONE (07:05)
[2020-09-26] MEDS ORDERED: METOPROLOL TARTRATE PF/INJ 5 MG/5 ML SDV IV ONE (07:05)
[2020-09-26 07:08] LABS: APPEARANCE,URINE SLIGHTLY-CLOUDY; BILIRUBIN,URINE NEGATIVE (NEGATIVE); COLOR,URINE YELLOW; GLUCOSE, URINE 50 mg/dL (NEGATIVE); KETONES,URINE NEGATIVE (NEGATIVE); LEUKOCYTE ESTERASE,URINE NEGATIVE (NEGATIVE); NITRITE,URINE NEGATIVE (NEGATIVE); PROTEIN,URINE NEGATIVE (NEGATIVE)
--- NOTE | 2020-09-26 07:48 | ER Document Report ---
Entered by KAYLEY TURPIN SCRIBE 09/26/20 0705 Acting as scribe for:WENDY MAGAÑA MD ED General - General Chief Complaint: Chest Pain Stated Complaint: CHEST PAIN Time Seen by Provider: 09/26/20 06:54 Primary Care Provider: JEANIE LATIF MD [ACTIVE STAFF] - Follow up as needed [facility] [Primary [facility]] - Follow up as needed Mode of Arrival: Ambulatory Information source: Patient Notes: This 50 year old female patient presents to the ED today with complaints of sternal chest pain that started x3 days ago. Patient states that she "felt her heart literally skip a beat" while she was driving and that she has been experiencing this chest pain on and off since then with palpitations and anxiety. She describes the pain as a heaviness and tightness. Denies any other complaints. TRAVEL OUTSIDE OF THE [place] IN LAST 30 DAYS: No - Related Data Allergies/Adverse Reactions: No Known Allergies Allergy (Verified 09/20/19 02:43) Past Medical History - General Information source: Patient, [facility] Records - Social History Smoking Status: Current Every Day Smoker Cigarette use (# per day): Yes - 0.5 ppd Chew tobacco use (# tins/day): No Smoking Education Provided: No Frequency of alcohol use: Occasional Drug Abuse: None Family History: Reviewed & Not Pertinent GI Medical History: Reports: Hx Ulcerative Colitis Musculoskeletal Medical History: Reports Hx Arthritis - RA Past Surgical History: Reports: Hx Orthopedic Surgery - Right rotator cuff, Hx Umbilical Hernia - Immunizations Immunizations up to date: Yes Hx Diphtheria, Pertussis, Tetanus Vaccination: Yes Review of Systems - Review of Systems Constitutional: No symptoms reported EENT: No symptoms reported Cardiovascular: See HPI, Chest pain, Palpitations Respiratory: No symptoms reported Gastrointestinal: No symptoms reported Genitourinary: No symptoms reported Female Genitourinary: No symptoms reported Musculoskeletal: No symptoms reported Skin: No symptoms reported Hematologic/Lymphatic: No symptoms reported Neurological/Psychological: See HPI, Anxiety -: Yes All other systems reviewed and negative Physical Exam - Vital signs Vitals: Resp BP Pulse Ox 19 159/105 H 95 09/26/20 03:13 09/26/20 03:13 09/26/20 03:13 - General General appearance: Alert, Anxious In distress: None - HEENT Head: Normocephalic, Atraumatic Eyes: Normal Pupils: PERRL Neck: Normal, Supple - Respiratory Respiratory status: No respiratory distress Chest status: Tender - Tenderness to palpation over the anterior chest wall, sternum, and lateral pectoralis musculature Breath sounds: Normal Chest palpation: Normal - Cardiovascular Rhythm: Regular - Rate 118 bpm Heart sounds: Normal auscultation Murmur: No Friction rub: No Gallop: None auscultated - Abdominal Inspection: Normal Distension: No distension Bowel sounds: Normal Tenderness: Nontender - Abdomen soft Organomegaly: No organomegaly - Back Back: Normal, Nontender - Extremities General upper extremity: Normal inspection General lower extremity: Normal inspection. No: Edema - Neurological Neuro grossly intact: Yes Orientation: AAOx4 Coby Coma Scale Eye Opening: Spontaneous Coby Coma Scale Verbal: Oriented [place] Coma Scale Motor: Obeys Commands Coby Coma Scale Total: 15 - Psychological Associated symptoms: Anxious - Skin Skin Temperature: Warm Skin Moisture: Dry Skin Color: Normal Course - Vital Signs Vital signs: Temp Pulse Resp BP Pulse Ox 97.8 F 139 H 20 142/103 H 95 09/26/20 07:30 09/26/20 03:27 09/26/20 07:30 09/26/20 07:30 09/26/20 07:30 - Laboratory Results Result Diagrams: 09/26/20 03:22 09/26/20 03:22 Laboratory Results Interpreted: 09/26/20 09/26/20 09/26/20 03:22 03:22 05:07 WBC 13.5 H RDW 15.5 H Absolute Neuts (auto) 8.7 H Chloride 108 H Carbon Dioxide 20 L Glucose 124 H Creatine Kinase 22 L TSH 5.82 H Urine Glucose (UA) Urine Blood Urine Urobilinogen 09/26/20 06:38 WBC RDW Absolute Neuts (auto) Chloride Carbon Dioxide Glucose Creatine Kinase TSH Urine Glucose (UA) 50 H Urine Blood SMALL H Urine Urobilinogen 2.0 H Critical Laboratory Results Reviewed: No Critical Results - Radiology Results Critical Radiology Results Reviewed: No Critical Results - EKG Interpretation by Me EKG shows normal: Sinus rhythm, [place], Intervals, QRS Complexes, ST-T Waves Rate: Tachycardia - 140 When compared to previous EKG there are: Changes noted Discharge - Discharge Clinical Impression: Chest wall pain, Tachycardia, Anxiety Condition: Stable Disposition: HOME, SELF-CARE Additional Instructions: Anxiety The physician feels that some of your health problems are being caused by anxiety. Anxiety affects your health in many ways. Anxiety alone can cause palpitations, sweats, chest pains, abdominal pains, shortness of breath, and headaches. It contributes to ulcer disease, high blood pressure, irritable bowel syndrome, and has been shown to cause flare-ups of many other diseases. Anxiety is not a simple disorder to treat. If the anxiety is due to recent life stresses, you may simply need time to "work through" the changes. If the anxiety is due to an underlying unhappiness with yourself or due to psychiatric disturbance, professional help will be needed. Your physician can refer you for further help if needed. Anti-anxiety medication is occasionally given if the stress is acute or if you are having trouble sleeping. Chronic or frequent use of these medications is not a good idea because the body becomes reliant on it, preventing you from dealing with life's normal stresses. Chest Wall Pain Your chest pain has been diagnosed as coming from the chest wall. This is often caused by straining the muscles or joints in the chest during physical activity, direct trauma, coughing, or vigorous vomiting. Persons with arthritis are especially prone to this type of pain, due to inflammation of the cartilage joints near the breast bone. Occasionally, no cause can be found. Rest from strenuous physical activity. This kind of chest pain is usually made worse by movement of the chest. Depending on the symptoms, we may prescribe medicine for pain, muscle relaxation, and antiinflammatory effects. If the pain is new, and seems to be due to muscle strain, cold packs can help. Otherwise, apply gentle warmth to the painful area for 15 minutes every hour or two. You should contact the doctor immediately if things change. Further evaluation is needed if you develop a fever or cough, if the nature of the pain changes, or if you become short of breath. Palpitations (Irregular/Rapid Heartrate) Irregular or rapid heartbeat is called "palpitation." To diagnose the cause of palpitation, we have to "catch it in the act" with an EKG. Sinus Tachycardia: This is a rapid (but NORMAL) rhythm that can be due to fever, pain, anxiety, lack of sleep, over-exertion, or drugs. Cold medications, caffeine, and diet pills are particularly likely to cause tachycardia. Usually, all that's required is rest, reassurance, and avoiding caffeine, alcohol, nicotine, and unnecessary medicines. Paroxysmal Atrial Tachycardia (PAT): This abnormally rapid heartbeat is caused by a "short circuit" in the electrical system of the heart. It is not dangerous, unless other heart disease is present. These attacks of PAT may occur occasionally for years. Medication is available for treatment. Paroxysmal Atrial Fibrillation or Atrial Flutter: This is irregular electrical activity in the upper heart chamber. These abnormal rhythms often occur with valve disease or in hearts damaged by hardening of the arteries. These rhythms usually require further testing, for example a cardiac echo. Premature Beats: Extra beats occur more commonly after caffeine, nicotine, alcohol, cold pills, diet pills. Emotional stress or fatigue also provoke them. Extra beats are only dangerous when heart disease is present. They usually need no treatment. If they're frequent, or if evidence of heart disease develops, medication can be given to suppress them. If we were unable to "catch" the palpitations on EKG, you should try to get an EKG immediately if the symptoms begin again. Contact the physician at once if you develop persistent lightheadedness, shortness of breath, chest pain, or swelling of the ankles. Take the medication as prescribed if you note that your heart is beating fast f or any prolonged length of time. Follow-up with your primary care provider to ask about a cardiology referral. Otherwise, you can contact Dr. Latif with [facility] at . RETURN TO THE EMERGENCY ROOM IF ANY NEW OR WORSENING SYMPTOMS. Prescriptions: Propranolol HCl [Inderal 10 mg Tablet] 10 mg PO Q8 PRN #30 tab PRN Reason: Referrals: [facility] [Primary [facility]] - Follow up as needed JEANIE LATIF MD [ACTIVE STAFF] - Follow up as needed I personally performed the services described in the documentation, reviewed and edited the documentation which was dictated to the scribe in my presence, and it accurately records my words and actions.
[2020-09-26 07:50] LABS: URINE AMPHETAMINES SCREEN NEGATIVE; URINE BARBITURATES SCREEN NEGATIVE; URINE BENZODIAZEPINES SCREEN NEGATIVE; URINE COCAINE SCREEN NEGATIVE; URINE MARIJUANA (THC) SCREEN NEGATIVE; URINE METHADONE SCREEN NEGATIVE; URINE PHENCYCLIDINE SCREEN NEGATIVE
[2020-09-26 10:21] VITALS: BP 121/88
== END 2020-09-26 10:27 | disposition home or self-care (01) ==
LOC: ER 03:08
DX: R07.89 Other chest pain (principal); R00.2 Palpitations; F41.9 Anxiety disorder, unspecified; F17.210 Nicotine dependence, cigarettes, uncomplicated
CPT/HCPCS: 93005; 99285; 96361; 96374; 96375; 36415; 84439; 82553; 80307 ×2; 82550; 83690; 84443; 85025; 81025; 80053; 81001; 84484; 84481; 85379; 71045; 93010; J1885; J3490; J7030

== ENCOUNTER 2020-10-01 02:34 | Emergency (ER) | payer OTHER ==
[2020-10-01 03:33] LABS: ABSOLUTE BASOPHILS # (AUTO) 0.1 10^3/uL (0.0-0.2); ABSOLUTE EOSINOPHILS # (AUTO) 0.1 10^3/uL (0.0-0.6); ABSOLUTE LYMPHOCYTES (AUTO) 3.1 10^3/uL (0.5-4.7); ABSOLUTE NEUT (AUTO) 6.3 10^3/uL (1.7-8.2); BASOPHILS % (AUTO) 0.7 % (0-2); EOSINOPHILS % (AUTO) 1.3 % (0-6); HEMATOCRIT 42.4 % (36.0-47.0); HEMOGLOBIN 14.9 g/dL (12.0-15.5); LYMPHOCYTES % (AUTO) 29.5 % (13-45); MEAN CORPUSCULAR HEMOGLOBIN 30.3 pg (27.0-33.4); MEAN CORPUSCULAR HGB CONC 35.2 g/dL (32.0-36.0); MEAN CORPUSCULAR VOLUME 86 fl (80-97); MONOCYTES % (AUTO) 9.1 % (3-13); PLATELET COUNT 402 10^3/uL (150-450); RED BLOOD COUNT 4.93 10^6/uL (3.72-5.28); RED CELL DISTRIBUTION WIDTH 15.7 % (11.5-14.0); SEGMENTED NEUTROPHILS % (AUTO) 59.4 % (42-78); TOTAL CELLS COUNTED % (AUTO) 100 %; WHITE BLOOD COUNT 10.6 10^3/uL (4.0-10.5)
[2020-10-01 03:39] LABS: INTERNATIONAL RATION (INR) 1.01; PROTHROMBIN TIME 13.5 SEC (11.4-15.4)
[2020-10-01 03:46] LABS: ALKALINE PHOSPHATASE 86 U/L (38-126); ANION GAP 12 (5-19); ASPARTATE AMINO TRANSFERASE 21 U/L (14-36); BILIRUBIN,DIRECT 0.2 mg/dL (0.0-0.4); BILIRUBIN,TOTAL 0.4 mg/dL (0.2-1.3); BLOOD UREA NITROGEN 8 mg/dL (7-20); CALCIUM 9.3 mg/dL (8.4-10.2); CARBON DIOXIDE 22 mmol/L (22-30); CHLORIDE 108 mmol/L (98-107); CREATINE KINASE 22 U/L (30-135); GLUCOSE 119 mg/dL (75-110); POTASSIUM 3.9 mmol/L (3.6-5.0); TOTAL PROTEIN 7.5 g/dL (6.3-8.2)
[2020-10-01 04:01] LABS: CREATINE KINASE MB < 0.22 ng/mL (<4.55); TROPONIN I < 0.012 ng/mL
--- NOTE | 2020-10-01 04:31 | RADIOLOGY REPORT (SQ) ---
EXAM DESCRIPTION: XR CHEST 1 VIEW COMPLETED DATE/TME: 10/01/2020 03:44 CLINICAL HISTORY: 50 years Female, chest pain COMPARISON: 09/26/20. NUMBER OF VIEWS/TECHNIQUE: 1/AP FINDINGS: Adequate lung volume, clear parenchyma, normal cardiac silhouette, and intact bony thorax.Old granulomatous disease. Upper abdominal clips. IMPRESSION: No acute cardiopulmonary findings.
--- NOTE | 2020-10-01 07:51 | EKG REPORT ---
SEVERITY:- OTHERWISE NORMAL ECG - SINUS TACHYCARDIA : Confirmed by: David Oswald MD 01-Oct-2020 07:50:31
--- NOTE | 2020-10-01 08:17 | ER Document Report ---
ED General - General Chief Complaint: Chest Pain Stated Complaint: CHEST PAIN Time Seen by Provider: 10/01/20 08:15 Primary Care Provider: AME CARVER MD [COMMUNITY BASED STAFF] - Follow up as needed JEANIE LATIF MD [ACTIVE STAFF] - 10/03/20 [facility] [Primary Care Provider] - 10/03/20 TRAVEL OUTSIDE OF THE [place] IN LAST 30 DAYS: No - HPI Notes: 50-year-old female with a history of hypertension, UC, emphysema presents to the emergency room today by ambulance for chest pain that started around 10 PM, dull, pounding on the left side without any radiation to her arm neck or back, reports she has mild headache, some shortness of breath, some nausea. Reports chest pain started at rest, lasted for a couple minutes comes and goes. Denies fevers, chills,palpitations, shortness of breath, dyspnea, nausea, vomiting, diarrhea, abdominal pain, hematuria,blurred vision, double vision, loss of vision, speech changes, LH, dizziness, syncope, headaches, wheezing, ST, URI, ne ck pain, weakness, bowel or bladder dysfunction, saddle anesthesia, numbness or tingling in bilateral upper or lower extremities equally, muscle paralysis, weakness in bilateral upper or lower extremities equally or rash. - Related Data Allergies/Adverse Reactions: No Known Allergies Allergy (Verified 09/20/19 02:43) Home Medications: Prednisone. Sulfa salizine 500mg BID. allanzipine 7.5mg BID. HCTZ 200mg. AMbien 20mg. Prozosone Past Medical History - General Information source: Patient - Social History Smoking Status: Current Every Day Smoker Chew tobacco use (# tins/day): No Frequency of alcohol use: Occasional Drug Abuse: None Family History: Reviewed & Not Pertinent Renal/ Medical History: Denies: Hx Peritoneal Dialysis GI Medical History: Reports: Hx Ulcerative Colitis Musculoskeletal Medical History: Reports Hx Arthritis - RA Past Surgical History: Reports: Hx Abdominal Surgery - hernia repair, Hx Orthopedic Surgery - Right rotator cuff, Hx Umbilical Hernia - Immunizations Immunizations up to date: Yes Hx Diphtheria, Pertussis, Tetanus Vaccination: Yes Review of Systems - Review of Systems Constitutional: No symptoms reported EENT: No symptoms reported Cardiovascular: See HPI Respiratory: No symptoms reported Gastrointestinal: No symptoms reported Genitourinary: No symptoms reported Female Genitourinary: No symptoms reported Musculoskeletal: No symptoms reported Skin: No symptoms reported Hematologic/Lymphatic: No symptoms reported Neurological/Psychological: No symptoms reported Physical Exam - Vital signs Vitals: Temp Pulse Resp BP Pulse Ox 98.0 F 114 H 18 147/83 H 94 10/01/20 02:44 10/01/20 02:44 10/01/20 02:44 10/01/20 02:44 10/01/20 02:44 - Notes Notes: MEDICATIONS: I agree with the patient medications as charted by the RN. ALLERGIES: I agree with the allergies as charted by the RN. PAST MEDICAL HISTORY/PAST SURGICAL HISTORY: Reviewed and agree as charted by RN. SOCIAL HISTORY: Reviewed and agree as charted by RN. FAMILY HISTORY: No significant familial comorbid conditions directly related to patient complaint EXAM: Reviewed vital signs as charted by RN. PHYSICAL EXAMINATION: reviewed vital signs by RN GENERAL: Well-appearing, well-nourished and in no acute distress. HEAD: Atraumatic, normocephalic. EYES: Pupils equal round and reactive to light, extraocular movements intact, conjunctiva are normal. ENT: Nares patent, oropharynx clear without exudates. Moist mucous membranes. NECK: Normal range of motion, supple without lymphadenopathy LUNGS: Breath sounds clear to auscultation bilaterally and equal. No wheezes rales or rhonchi. HEART: Regular rate and rhythm without murmurs ABDOMEN: Soft, nontender, nondistended abdomen. No guarding, no rebound. No masses appreciated. Female : deferred Musculoskeletal: Normal range of motion, no pitting or edema. No cyanosis. NEUROLOGICAL: Cranial nerves grossly intact. Normal speech, normal gait. Normal sensory, motor exams PSYCH: Normal mood, normal affect. SKIN: Warm, Dry, normal turgor, no rashes or lesions noted. Course - Re-evaluation Re-evalutation: 10/01/20 16:42 Afebrile, vital stable, no distress. Nurses notes reviewed. Patient's encounter 2 days ago reviewed when she came in for chest pain, pertinent laboratory and diagnostic results evaluated. CBC negative for leukocytosis or anemia, CMP negative for hepatic or renal dysfunction, D-dimer negative, patient does not require CTA further evaluation for a PE, heart rate in the 70s when I pick this patient up at 8 AM/ patient's thyroid was slightly hypothyroidism free T4 was normal (this was done two days ago). Chest x-ray unremarkable. EKG negative for acute STEMI. I did obtain 3 separate troponins done 3 hours apart which were all negative due for patient returning back to the emergency room with chest pain. Discussed with patient that she does need to follow-up with a industrial maintenance instructor outpatient for further evaluation. Presentation of chest pain in an otherwise well appearing patient. Low clinical suspicion for ACS given clinical history, exam, EKG without ST elevations or depressions, and negative initial troponin. HEART score less than or equal to 3. PE also seems unlikely given clinical history, absence of tachycardia or dyspnea. Patient is PERC criteria negative. CXR without evidence of pneumothorax or pneumonia. No widened mediastinum. Aortic dissection also seems unlikely given history, symmetric pulses, CXR, and vitals. HEART Score: History 0 ECG 0 Age+1 Risk Factors +2 Troponin 0 Total:3 Chest pain in a patient without evidence of cardiac or other serious etiology on workup today. I discussed with patient that, based on their age, risk factors and emergency department testing today, the likelihood that their symptoms are related to a heart attack is very low (estimated risk of heart attack or over the next 30 days of less than 1%). The patient demonstrates decision making capacity and has verbalized an understanding of these risks to me. Based on this, the patient has chosen to follow-up as an outpatient. Usual chest pain return precautions reviewed. The patient states understanding and agreement with this plan. 10/01/20 16:49 10/01/20 16:51 - Vital Signs Vital signs: Temp Pulse Resp BP Pulse Ox 98.0 F 114 H 12 145/94 H 96 10/01/20 02:44 10/01/20 02:44 10/01/20 16:01 10/01/20 16:01 10/01/20 16:01 - Laboratory Results Result Diagrams: 10/01/20 03:07 10/01/20 03:07 Laboratory Results Interpreted: 10/01/20 10/01/20 03:07 03:07 WBC 10.6 H RDW 15.7 H Chloride 108 H Glucose 119 H Creatine Kinase 22 L Critical Laboratory Results Reviewed: No Critical Results - Radiology Results Critical Radiology Results Reviewed: No Critical Results - EKG Interpretation by Me EKG shows normal: Sinus rhythm Rate: Normal Additional EKG results interpreted by me: 10/01/20 16:55 Heart rate 112, P axis 43, QRS axis 18, T axis 40. No STEMI. No ST segment elevations. Interpreted by ER supervising physician Discharge - Discharge Clinical Impression: Anxiety, Chest wall pain, chest pain of unclear cause Condition: Stable Disposition: HOME, SELF-CARE Instructions: Chest Wall Pain ([facility]), Chest Pain of Unclear Cause ([facility]) Additional Instructions: We did 3 sets of troponins over a 12-hour, in the emergency room which all came back negative. Your blood work was normal. Your chest x-ray was normal as well as your EKG. It is advised that you follow-up with a industrial maintenance instructor on Saturday to make an appointment for further follow-up. Please continue to take your antianxiety medication. If you experience any worsening chest pain, shortness of breath, please return to the emergency room. Return immediately for any new or worsening symptoms. Follow up with primary care provider, call tomorrow to make followup appointment. Referrals: AME CARVER MD [COMMUNITY BASED STAFF] - Follow up as needed JEANIE LATIF MD [ACTIVE STAFF] - 10/03/20 [facility] [Primary Care Provider] - 10/03/20
[2020-10-01 11:28] LABS: NT PRO BNP 45 pg/mL (<125); TROPONIN I < 0.012 ng/mL
[2020-10-01] MEDS ORDERED: HYDROCODONE/ACETAMINOPHEN 10-325 MG TABLET PO ONE (12:53)
[2020-10-01 16:44] VITALS: BP 145/94
== END 2020-10-01 16:44 | disposition home or self-care (01) ==
LOC: ER 02:34
DX: F41.9 Anxiety disorder, unspecified (principal); R07.89 Other chest pain; I10 Essential (primary) hypertension; F17.200 Nicotine dependence, unspecified, uncomplicated
CPT/HCPCS: 36415; 71045; 80053; 82550; 82553; 83880; 84484; 85025; 85379; 85610; 93005; 93010; 99285